=== PATIENT | male | born 1950 | race Caucasian/White ===

== ENCOUNTER → 2025-08-20 09:49 | Outpatient (BNVA) | payer MEDICARE, SELFPAY | PROVIDERS: PCP Family Medicine; Visit Provider Family Medicine | DX: I10 Essential (primary) hypertension (principal); I50.9 Heart failure, unspecified; I25.10 Atherosclerotic heart disease of native coronary artery without angina pectoris; G62.9 Polyneuropathy, unspecified | CPT/HCPCS: 80053; 80061; 84443 ==